=== PATIENT | female | born 1995 | race Hispanic/Latino ===

== ENCOUNTER 2019-05-02 22:39 | Inpatient (IN) ==
[2019-05-02 23:16] LABS: URINE SOURCE VOIDED
[2019-05-02 23:36] LABS: UR AMPHETAMINES QUAL NONE DETECTED (NONE DETECT); UR BARBITUATES QUAL NONE DETECTED (NONE DETECT); UR BENZODIAZEPIN QUAL NONE DETECTED (NONE DETECT); UR CANNABINOIDS QUAL NONE DETECTED (NONE DETECT); UR COCAINE QUAL NONE DETECTED (NONE DETECT); UR METHADONE QUAL NONE DETECTED (NONE DETECT); UR OPIATES QUAL NONE DETECTED (NONE DETECT); UR OXYCODONE QUAL NONE DETECTED (NONE DETECT); UR PCP QUAL NONE DETECTED (NONE DETECT)
[2019-05-02 23:44] LABS: BILIRUBIN URINE NEGATIVE (NEGATIVE); BLOOD URINE TRACE (NEGATIVE); COLOR STRAW; GLUCOSE URINE NEGATIVE (NEGATIVE); KETONE URINE NEGATIVE (NEGATIVE); LEUKOCYTES URINE NEGATIVE (NEGATIVE); NITRITE URINE NEGATIVE (NEGATIVE); PH URINE 6.5; PROTEIN URINE NEGATIVE (NEGATIVE); SP GRAVITY URINE 1.004; TURBIDITY URINE CLEAR (CLEAR); UROBILINOGEN URINE NORMAL (NORMAL)
[2019-05-02] MEDS ORDERED: LR 1,000 ML IV SCH (23:45)
[2019-05-03] MEDS ORDERED: AMPICILLIN 2 GM in NS 100 ML IV ONE ×2
[2019-05-03 00:15] LABS: BASO# 0.02 X1000 (0.0-0.2); BASO% 0.2 % (0.0-0.8); EOS# 0.08 X1000 (0.0-0.7); EOS% 0.9 % (0.0-10.0); HEMATOCRIT 33.3 % (37.0-47.0); HEMOGLOBIN 10.5 g/dL (12.0-16.0); IMM GRAN# 0.05 X1000 (0.0-0.04); IMM GRAN% 0.6 % (0.0-0.5); LYMPH# 2.09 X1000 (1.2-3.4); LYMPH% 23.2 % (20.5-51.1); MCH 27.1 PG (27-31); MCHC 31.5 g/dL (33-37); MONO% 5.5 % (1.7-9.3); NEUT# 6.28 X1000 (1.4-6.5); NEUT% 69.6 % (42.2-75.2); PLT 139 X1000 (130-400); RBC 3.87 XMIL (4.2-5.4); RDW 13.9 % (11.5-14.5); WBC 9.02 X1000 (4.8-10.8)
[2019-05-03 00:54] LABS: RPR NON-REACTIVE (NONREACTIVE)
[2019-05-03 01:12] LABS: RUBELLA SCREEN IMMUNE (IMMUNE)
[2019-05-03 01:18] LABS: RAPID HIV PRESUMPTIVE NEGATIVE
[2019-05-03] MEDS ORDERED: STADOL IV ONE (03:04)
[2019-05-03] MEDS ORDERED: AMPICILLIN 1 GM in NS 50 ML IV SCH (03:49)
[2019-05-03] MEDS ORDERED: ZOFRAN IV PRN (07:04)
[2019-05-03] MEDS ORDERED: PEPCID PO PRN ×2 (07:04)
[2019-05-03] MEDS ORDERED: TYLENOL PO PRN (07:04)
[2019-05-03] MEDS ORDERED: REGLAN PO PRN (07:04)
[2019-05-03] MEDS ORDERED: KEFZOL 2 GM/D5W 2 GM/50 ML IVPB IV PRN (07:04)
[2019-05-03] MEDS ORDERED: STADOL IV PRN (07:04)
[2019-05-03] MEDS ORDERED: PEPCID IV PRN (07:04)
[2019-05-03] MEDS ORDERED: MINERAL OIL TOP PRN (07:07)
[2019-05-03] MEDS ORDERED: XYLOCAINE-MPF 1% INJ PRN ×2 (07:07→07:46)
[2019-05-03] MEDS ORDERED: PITOCIN 30 UNITS/NS 30 UNIT/500 ML IV.SOLN ONE (07:07)
[2019-05-03] MEDS ORDERED: SODIUM CHLORIDE 0.9% INJ SCH (07:15)
[2019-05-03] MEDS ORDERED: LR 1,000 ML IV SCH (07:15)
[2019-05-03] MEDS ORDERED: PITOCIN 30 UNITS/NS 30 UNIT/500 ML IV.SOLN IV SCH ×2 (07:15→08:00)
--- NOTE | 2019-05-03 07:33 | HISTORY AND PHYSICAL ---
HISTORY OF PRESENT ILLNESS: The patient is a 24-year-old, [place] female, G 3, P 2, who has not had any care. The patient presents with uterine contractions. She reports a due date of 05/09/2019 by an ultrasound performed at [email or web address] [facility] but has not had any care outside of that. She initially took vitamins but has discontinued that as well. The patient has a history of 2 spontaneous vaginal deliveries in [facility] without complication. PAST MEDICAL HISTORY: Unremarkable. PAST SURGICAL HISTORY: None. PAST OBSTETRICAL HISTORY: G 3, P 2. Spontaneous vaginal delivery x2. REVIEW OF SYSTEMS: All systems reviewed and noncontributory. FAMILY HISTORY: Unremarkable. SOCIAL HISTORY: Tobacco use: None. Alcohol use: None. MEDICATIONS: None. ALLERGIES: No known drug allergies. PHYSICAL EXAMINATION: VITAL SIGNS: Height 5 feet 4 inches, weight 120 pounds. Temperature 98.4 degrees, blood pressure 106/67, pulse of 68, respirations 18. heart rate 140s with positive accelerations and good sqmy-cf-dsey variability. HEENT: Pupils equal, round, reactive to light and accommodation. Extraocular movements intact. Oropharynx clear. NECK: Supple. No thyromegaly. LUNGS: Clear to auscultation. HEART: Regular rate and rhythm. ABDOMEN: Gravid, nontender. PELVIC: Cervix was dilated 9 cm, completely effaced, and 0 station. Rupture of membranes was performed artificially and clear fluid was noted. The patient also was noted to have some bloody show when checked. ASSESSMENT/PLAN: This is a 24-year-old, Romanian female, 3, para 2, at near term with active labor. The patient has been receiving intravenous antibiotics for unknown group B strep prophylaxis. Anticipate spontaneous vaginal delivery. cc: Tristen Kong III, MD
[2019-05-03] MEDS ORDERED: M-M-R II VACCINE SUBQ ONE (07:46)
[2019-05-03] MEDS ORDERED: BOOSTRIX VACCINE IM ONE (07:46)
[2019-05-03] MEDS ORDERED: BENADRYL PO PRN (07:46)
[2019-05-03] MEDS ORDERED: PERI MEDS (DERMOPLAST/NUPERCAINAL/TUCKS) MISC PRN (07:46)
[2019-05-03] MEDS ORDERED: PITOCIN IM PRN (07:46)
[2019-05-03] MEDS ORDERED: MOTRIN PO PRN (07:46)
[2019-05-03] MEDS ORDERED: CYTOTEC PO PRN (07:46)
[2019-05-03] MEDS ORDERED: MINERAL OIL PO PRN (07:46)
[2019-05-03] MEDS ORDERED: HYDROXYZINE IM PRN (07:46)
[2019-05-03] MEDS ORDERED: BENADRYL IV PRN (07:46)
[2019-05-03] MEDS ORDERED: AMBIEN PO PRN (07:46)
[2019-05-03] MEDS ORDERED: NORCO-10 PO PRN (07:46)
[2019-05-03] MEDS ORDERED: ATARAX PO PRN (07:46)
[2019-05-03] MEDS ORDERED: NORCO-5 PO PRN (07:46)
[2019-05-03] MEDS ORDERED: PITOCIN 20 UNITS/NS 20 UNITS/1,000 ML IV.SOLN IV SCH (08:00)
--- NOTE | 2019-05-03 08:01 | OPERATIVE NOTE ---
PROCEDURE DATE: 05/03/2019 The patient progressed to complete, pushing, had spontaneous vaginal delivery of a female infant, 5 pounds 5 ounces, with Apgars of 9 and 10 at 0:28 on 05/03/2019 over a first-degree midline episiotomy. Nuchal cord x1 was reduced easily over the perineum. Cord blood sample was obtained at this time. Placenta was then delivered intact with 3 vessel cord. First-degree midline episiotomy was repaired with 3-0 chromic. Anesthesia with 2 mL of 1% lidocaine. Estimated blood loss 150 mL. All counts were correct x2. cc: Tristen Kong III, MD
[2019-05-03 10:55] LABS: HEPATITIS B SURFACE ANTIGEN SEE COMMENTS
[2019-05-03 15:38] LABS: HIV ANTIBODY SCREEN SEE COMMENTS
[2019-05-04 05:55] LABS: BASO# 0.03 X1000 (0.0-0.2); BASO% 0.3 % (0.0-0.8); EOS# 0.15 X1000 (0.0-0.7); EOS% 1.5 % (0.0-10.0); HEMATOCRIT 33.4 % (37.0-47.0); HEMOGLOBIN 10.3 g/dL (12.0-16.0); IMM GRAN# 0.03 X1000 (0.0-0.04); IMM GRAN% 0.3 % (0.0-0.5); LYMPH% 23.5 % (20.5-51.1); MCH 26.9 PG (27-31); MCHC 30.8 g/dL (33-37); MCV 87.2 FL (81-99); MONO# 0.75 X1000 (0.11-0.59); MONO% 7.7 % (1.7-9.3); NEUT# 6.52 X1000 (1.4-6.5); NEUT% 66.7 % (42.2-75.2); PLT 140 X1000 (130-400); RBC 3.83 XMIL (4.2-5.4); RDW 14.1 % (11.5-14.5); WBC 9.78 X1000 (4.8-10.8)
[2019-05-04] MEDS: PERICOLACE PO SCH ×2 (07:06→20:41)
--- NOTE | 2019-05-04 11:47 | PROGRESS NOTE ---
DATE: 05/04/2019 Sasha was seen at the bedside and has no complaints. She speaks very little Chinese and her spouse assisted with her translation. She states that she has minimal abdominal pain and her lochia is low in flow. She has no complaints regarding appetite. PHYSICAL EXAMINATION: Vital Signs: Within normal limits. Heart: Regular rhythm and rate without murmur. Lungs: Clear to auscultation bilaterally. Abdomen: Soft, firm fundus, nontender. Extremities: Without clubbing, cyanosis, or edema. ASSESSMENT: 1. Status post spontaneous vaginal delivery. 2. Stable. PLAN: 1. Continue management. 2. Possible discharge on tomorrow. cc: Tristen Kong III, MD
--- NOTE | 2019-05-05 07:26 | OB/GYN PROGRESS NOTE ---
- Subjective Up and about, ready to go home OB Physical Exam Vital Signs - 8 hr 05/05/19 00:05 05/05/19 04:37 Temperature 96.7 F L 97.2 F L Pulse Rate 57 L 76 Respiratory Rate 18 18 Blood Pressure 109/63 97/52 O2 Sat by Pulse Oximetry 96 100 - CONSTITUTIONAL General Appearance: appears well, alert, no apparent distress - EYES Eyes: PERRL/EOMI - HEAD, EARS, NOSE, MOUTH & THROAT HENMT: normocephalic/atraumatic - RESPIRATORY Respiratory: no respiratory distress - CARDIOVASCULAR Cardiovascular: regular rate, rhythm - CHEST (BREASTS) Chest/Breast: deferred - GASTROINTESTINAL (ABDOMEN) Abdominal Exam: non tender, soft - GENITOURINARY Female Genitalia/Pelvic Exam: deferred - MUSCULOSKELETAL Extremity: normal range of motion - SKIN Integumentary: normal color, normal turgor - NEUROLOGIC Neurologic: grossly normal - PSYCHIATRIC Psych/Mental Status: normal mood/affect, oriented x 3 Active Medications Generic Name Dose Route Start Last Admin Trade Name Freq PRN Reason Stop Dose Admin Acetaminophen 650 mg 05/03/19 07:04 Tylenol PO Q4-6H PRN PRN Headache Hydrocodone Bitart/Acetaminophen 1 each 05/03/19 07:46 Nome-5 PO Q3-4H PRN PRN Pain (1-6 on Pain Scale) Hydrocodone Bitart/Acetaminophen 1 each 05/03/19 07:46 Nome-10 PO Q3-4H PRN PRN Pain (7-10 on Pain Scale) Benzocaine 1 each 05/03/19 07:46 Amber Meds (Dermoplast/Nupercainal/Tucks) MISC 3-4XDAY PRN PRN episiotomy/hemorrhoids Diphenhydramine HCl 12.5 mg 05/03/19 07:46 Benadryl IV Q4H PRN PRN Itching Diphenhydramine HCl 25 mg 05/03/19 07:46 Benadryl PO Q4H PRN PRN Itching Famotidine 40 mg 05/03/19 07:04 Pepcid PO Q12H PRN PRN GI upset or indigestion Famotidine 20 mg 05/03/19 07:04 Pepcid IV Q12H PRN PRN GI upset or indigestion Hydroxyzine HCl 50 mg 05/03/19 07:46 Atarax PO Q3-4H PRN PRN Nausea Hydroxyzine HCl 50 mg 05/03/19 07:46 Hydroxyzine IM Q3-4H PRN PRN Nausea Ibuprofen 800 mg 05/03/19 07:46 Motrin PO Q8H PRN PRN cramping Misoprostol 800 microgm 05/03/19 07:46 Cytotec PO PRN PRN Severe bleeding Ondansetron HCl 4 mg 05/03/19 07:04 Zofran IV PRN PRN Nausea Senna/Docusate Sodium 1 each 05/03/19 21:00 05/04/19 20:41 Pericolace PO 1 each QHS DAYLIN Administration Sodium Chloride 5 - 10 ml 05/03/19 07:15 Sodium Chloride 0.9% INJ DIRECTED DAYLIN Zolpidem Tartrate 10 mg 05/03/19 07:46 Ambien PO HS PRN PRN Sleep Laboratory Results - last 24 hr 05/02/19 21:47 Ur Chlamydia/GC DNA SEE COMMENTS OB Assessment & Plan (1) Normal course Status: Acute Plan: discharge today, with follow up in 4-6 weeks, precautions,
--- NOTE | 2019-05-05 07:57 | DISCHARGE SUMMARY ---
ADMISSION DATE: 05/03/2019 DISCHARGE DATE: 05/05/2019 PATIENT PROFILE: She is a 24-year-old, female, 3, para 2, who presented with no care and in labor. The patient had a history of 2 spontaneous vaginal deliveries in [facility] without complication. SURGICAL HISTORY: She had no previous surgery. REVIEW OF SYSTEMS: Unremarkable. FAMILY HISTORY: Unremarkable. She did not use cigarettes or use alcohol. MEDICATIONS: She was on no medications. ALLERGIES: No known drug allergies. HOSPITAL COURSE: The patient got GBS prophylaxis , was admitted for labor. The patient delivered a full-term living female , 5 pounds 5 ounces, with Apgars of 9 and 10, at 00:28 hours, 05/03/2019, over first-degree midline episiotomy. The repair was uncomplicated, and her course was totally benign. She remained well and afebrile. VITAL SIGNS: Her temperature was 96.7 degrees with a pulse of 57 and blood pressure is 109/63. Her hematocrit on admission was 33.3 and on discharge 33.4. DISCHARGE INSTRUCTIONS: The patient verbalized understanding of all discharge instructions, and will have followup in 4 to 6 weeks. cc: Tristen Kong III, MD [id number]
[2019-05-05 08:01] VITALS: BP 102/56
== END 2019-05-05 10:10 | disposition home or self-care (01) | DRG 807 ==
LOC: EDSTATUS 22:39 → OPLD 22:39 → LD 22:44
PROVIDERS: ADMIT Obstetrics & Gynecology; ATTEND Obstetrics & Gynecology